=== PATIENT | male | born 1945 | race Caucasian/White ===

== ENCOUNTER 2019-09-27 13:21 | Inpatient (IN) | payer MEDICARE, OTHER ==
[~2019-09-27] VITALS: Ht 175.3 cm; Wt 78.9 kg
[2019-09-27] MEDS ORDERED: CEFTRIAXONE SODIUM 2 GM VIAL ONE (14:22)
[2019-09-27] MEDS ORDERED: SODIUM CHLORIDE 0.9% 100 ML IV ONE (14:22)
[2019-09-27 14:51] LABS: APPEARANCE,URINE CLOUDY (CLEAR); BILIRUBIN,URINE SMALL (NEGATIVE); GLUCOSE, URINE (UA) 250 mg/dL (NEGATIVE); KETONES,URINE NEGATIVE (NEGATIVE); LEUKOCYTE ESTERASE ,URINE NEGATIVE (NEGATIVE); NITRATE,URINE NEGATIVE (NEGATIVE); OCCULT BLOOD,URINE LARGE (NEGATIVE); PH,URINE 5.5 (5.0-8.0); PROTEIN,URINE 30 mg/dL (NEGATIVE)
[2019-09-27 14:56] LABS: COLOR,URINE BROWN (YELLOW)
[2019-09-27 14:56] LABS: BASOPHILS % (AUTO) 0.5 % (0.0-5.0); HEMATOCRIT 41.3 % (42-54); LYMPHOCYTES % (AUTO) 23.4 % (21.0-51.0); MEAN CORPUSCULAR HEMOGLOBIN 33.5 pg (27.0-33.0); MEAN CORPUSCULAR HGB CONC 34.8 g/dL (32.0-36.0); MEAN CORPUSCULAR VOLUME 96.3 fL (79-99); MONOCYTES % (AUTO) 6.2 % (3.0-13.0); NEUTROPHILS % (AUTO) 68.9 % (40.0-77.0); PLATELET COUNT (AUTO) 215 K/uL (130-400); RED BLOOD CELL COUNT(AUTO) 4.29 MIL/uL (4.50-6.20)
[2019-09-27 14:58] LABS: RBC,URINE Full Field /HPF (0-1)
[2019-09-27 14:59] LABS: BACTERIA,URINE Few /HPF (None Seen); SQUAMOUS EPITHELIAL CELL,UR None Seen /HPF (0-2); WBC,URINE 0-1 /HPF (0-1)
[2019-09-27 15:07] LABS: INR 1.19 (0.85-1.15); PARTIAL THROMBOPLASTIN TIME 30.9 SEC (26.3-35.5); PROTHROMBIN TIME 12.4 SEC (9.6-11.6)
[2019-09-27 15:09] LABS: CARBON DIOXIDE 27 mmol/L (21-32); CHLORIDE 107 mmol/L (101-111); CREATININE 0.9 mg/dL (0.5-1.5); GLOMERULAR FILTR. RATE CALC 87 mL/min (>60); GLUCOSE,RANDOM 205 mg/dL (70-105); POTASSIUM 3.9 mmol/L (3.5-5.1); SODIUM SERUM 143 mmol/L (136-145); UREA NITROGEN, BLOOD 16 mg/dL (7-18)
[2019-09-27 15:20] LABS: ALANINE AMINOTRANSFERASE 30 U/L (12-78); ALBUMIN 3.2 g/dL (3.5-5.0); ASPARTATE AMINOTRANSFERASE 21 U/L (10-37); BILIRUBIN,TOTAL 0.5 mg/dL (0.2-1.0); CREATINE KINASE, TOTAL 45 U/L (21-232); MYOGLOBIN 47 ng/mL (10-92); TOTAL PROTEIN, SERUM 6.5 g/dL (6.0-8.3); TROPONIN I < 0.04 ng/mL (0.00-0.06)
[2019-09-27] MEDS: SODIUM CHLORIDE 0.9% 1000ML 1,000 ML IV SCH (16:10)
[2019-09-27] MEDS ORDERED: MORPHINE SULFATE 2 MG/ML 1ML SYG IV PRN (16:15)
[2019-09-27] MEDS: TAMSULOSIN HCL 0.4 MG CAP.ER.24H PO SCH (16:15)
[2019-09-27] MEDS ORDERED: HYDRALAZINE HCL 20 MG/ML VIAL IV PRN (16:15)
[2019-09-27] MEDS ORDERED: MORPHINE SULFATE 4 MG/1ML SYG IV PRN (16:15)
[2019-09-27] MEDS ORDERED: TAMSULOSIN HCL 0.4 MG CAP.ER.24H ONE ×2 (16:58→16:59)
[2019-09-27] MEDS ORDERED: SODIUM CHLORIDE 0.9% 1000ML 1,000 ML IV ONE (16:58)
[2019-09-27] MEDS ORDERED: ZOSYN 3.375GM+NS 50ML 50 ML IV ONE (16:58)
[2019-09-27] MEDS ORDERED: MORPHINE SULFATE 4 MG/1ML SYG ONE (17:49)
[2019-09-27 18:15] VITALS: BP 144/99
[2019-09-27 20:39] VITALS: BP 134/80
[2019-09-27] MEDS: METOPROLOL TARTRATE 25 MG TAB PO SCH (21:30)
[2019-09-27] MEDS: FAMOTIDINE/PF 20 MG/2 ML VIAL IV SCH (21:30)
[2019-09-27] MEDS: ZOSYN 3.375GM+NS 50ML 50 ML IV SCH (21:31)
[2019-09-27] MEDS ORDERED: LORA10TA7 PO (22:30)
[2019-09-27] MEDS ORDERED: NITR0.4T50 SL (22:30)
[2019-09-27] MEDS ORDERED: ATEN50TA PO (22:30)
[2019-09-27] MEDS ORDERED: PANT40TA25 PO (22:30)
[2019-09-27] MEDS ORDERED: ATOR10TA69 PO (22:30)
[2019-09-27] MEDS ORDERED: RIVA20TA PO (22:30)
[2019-09-27 23:56] VITALS: BP 118/79
[2019-09-28] MEDS: SODIUM CHLORIDE 0.9% 1000ML 1,000 ML IV SCH ×4 (00:10→22:21)
[2019-09-28 04:04] VITALS: BP 105/60
[2019-09-28 05:02] LABS: BASOPHILS % (AUTO) 0.5 % (0.0-5.0); EOSINOPHILS % (AUTO) 0.5 % (0.0-8.0); HEMATOCRIT 38.3 % (42-54); MEAN CORPUSCULAR HEMOGLOBIN 33.8 pg (27.0-33.0); MEAN CORPUSCULAR HGB CONC 35.2 g/dL (32.0-36.0); MEAN CORPUSCULAR VOLUME 96.1 fL (79-99); MONOCYTES % (AUTO) 7.4 % (3.0-13.0); NEUTROPHILS % (AUTO) 77.6 % (40.0-77.0); PLATELET COUNT (AUTO) 196 K/uL (130-400); RED BLOOD CELL COUNT(AUTO) 3.99 MIL/uL (4.50-6.20); RED CELL DISTRIBUTION WIDTH 12.8 % (11.0-15.5); WHITE BLOOD COUNT (AUTO) 10.5 K/uL (4.8-10.8)
[2019-09-28 05:06] LABS: CREATININE 1.1 mg/dL (0.5-1.5); POTASSIUM 4.1 mmol/L (3.5-5.1)
[2019-09-28] MEDS: ZOSYN 3.375GM+NS 50ML 50 ML IV SCH ×3 (05:07→21:23)
[2019-09-28 08:00] VITALS: BP 128/76
--- NOTE | 2019-09-28 08:10 | NUR ---
PATIENT UPDATE Pt admitted with afib with rvr episode from the ER as per report. Ms. Enrique INFORMATION RESOURCES DIRECTOR called and asked about the possible need for telemetry monitoring and ordered it. Patient running afib bet 94- low 100's, no chest pain, no shortness of breath. No complaints of any abdominal nor bladder discomfort, tatum catheter inserted from ER and the urine blood tinged. Patient was on xarelto but it was put on hold with this admission. Pt with gaurav scd's on both lower extremities for vte protocol.Mod amt of bruised areas mostly on the gaurav upper extremities bec of the anticoagulation. Observed closely for any signs of bleeding other than the hematuria, none noted. Vital signs stable,adequate urine output , urine strained, no stones noted. Pt kept npo as per order, pending to be seen by urologist this am. Blood sugars checked q 6hrs, within normal limits. CHG bath given by ASPHALT RAKER, pt slept well overnight.
[2019-09-28] MEDS: TAMSULOSIN HCL 0.4 MG CAP.ER.24H PO SCH (08:50)
[2019-09-28] MEDS: FAMOTIDINE/PF 20 MG/2 ML VIAL IV SCH ×2 (08:50→21:23)
[2019-09-28] MEDS: METOPROLOL TARTRATE 25 MG TAB PO SCH ×2 (08:50→21:23)
[2019-09-28 11:00] VITALS: BP 120/83
--- NOTE | 2019-09-28 15:06 | NUR ---
DR RUIZ IN TO SEE PATIENT.
[2019-09-28 16:00] VITALS: BP 137/77
--- NOTE | 2019-09-28 16:12 | NUR ---
FRIED CATHETER REMOVED ORDERS WITH 700 CC URINARY RETURNED , PATIENT TOLERATED PROCEDURES WELL , DUE TO VOID BY 12 PM
--- NOTE | 2019-09-28 18:04 | NUR ---
INITIAL: Met with pt this afternoon to discuss dcp. Pt mentions that he lives w his girlfriend. Prior to admission was independent w ambulation and ADLs. He has a cane, wc and walker that belonged to his . Pt mentions that he drives where needed. He states that he feels safe and comfortable to return home at [place]. CM to continue to follow and wait for Md recommendations. Addendum: 09/28/19 at 1805 by KARI TAPIA Amended: Links added.
[2019-09-28 20:14] VITALS: BP 120/75
[2019-09-28 23:15] VITALS: BP 116/65
[2019-09-29 03:22] VITALS: BP 127/73
[2019-09-29] MEDS: SODIUM CHLORIDE 0.9% 1000ML 1,000 ML IV SCH (04:43)
[2019-09-29] MEDS: ZOSYN 3.375GM+NS 50ML 50 ML IV SCH ×2 (04:43→12:58)
[2019-09-29 05:31] LABS: BASOPHILS % (AUTO) 0.7 % (0.0-5.0); EOSINOPHILS % (AUTO) 1.9 % (0.0-8.0); HEMATOCRIT 36.9 % (42-54); LYMPHOCYTES % (AUTO) 27.8 % (21.0-51.0); MEAN CORPUSCULAR HEMOGLOBIN 34.1 pg (27.0-33.0); MEAN CORPUSCULAR HGB CONC 35.2 g/dL (32.0-36.0); MEAN CORPUSCULAR VOLUME 96.9 fL (79-99); MONOCYTES % (AUTO) 9.7 % (3.0-13.0); NEUTROPHILS % (AUTO) 59.9 % (40.0-77.0); PLATELET COUNT (AUTO) 165 K/uL (130-400); RED BLOOD CELL COUNT(AUTO) 3.81 MIL/uL (4.50-6.20); RED CELL DISTRIBUTION WIDTH 12.9 % (11.0-15.5); WHITE BLOOD COUNT (AUTO) 6.1 K/uL (4.8-10.8)
[2019-09-29 06:06] LABS: POTASSIUM 3.9 mmol/L (3.5-5.1)
[2019-09-29 07:30] VITALS: BP 140/82
[2019-09-29] MEDS: TAMSULOSIN HCL 0.4 MG CAP.ER.24H PO SCH (09:26)
[2019-09-29] MEDS: FAMOTIDINE/PF 20 MG/2 ML VIAL IV SCH (09:26)
[2019-09-29] MEDS: METOPROLOL TARTRATE 25 MG TAB PO SCH (09:26)
[2019-09-29 11:00] VITALS: BP 149/87
[2019-09-29] MEDS ORDERED: TAMS-1 PO (11:21)
[2019-09-29] MEDS ORDERED: FINA5TAB2 PO (11:24)
[2019-09-29] MEDS ORDERED: FINASTERIDE 5 MG TABLET PO SCH (11:30)
[2019-09-29] MEDS ORDERED: AMIO200T5 PO (13:42)
[2019-09-29] MEDS ORDERED: AMIODARONE HCL 200 MG TABLET PO SCH (13:45)
[2019-09-29 16:00] VITALS: BP 148/85
--- NOTE | 2019-09-29 17:49 | NUR ---
PATIENT DISCHARGE PATIENT DISCHARGED, IV DISCONTINUED, CATHLON INTACT, BLEEDING CONTROLLED, PATIENT TOLERATED WITHOUT INCIDENT.
== END 2019-09-29 18:00 | disposition home or self-care (01) | DRG 696 ==
LOC: EDH 13:21 → EDHIP 16:10 → 3AH 18:06
PROVIDERS: ADMIT Internal Medicine; ATTEND Internal Medicine
DX: R31.0 Gross hematuria (principal); I48.0 Paroxysmal atrial fibrillation; N40.0 Benign prostatic hyperplasia without lower urinary tract symptoms; I10 Essential (primary) hypertension; E11.9 Type 2 diabetes mellitus without complications; I25.10 Atherosclerotic heart disease of native coronary artery without angina pectoris; I44.4 Left anterior fascicular block; E78.5 Hyperlipidemia, unspecified; K57.90 Diverticulosis of intestine, part unspecified, without perforation or abscess without bleeding; Z96.652 Presence of left artificial knee joint; Z95.5 Presence of coronary angioplasty implant and graft; Z87.891 Personal history of nicotine dependence; Z90.49 Acquired absence of other specified parts of digestive tract; Z87.442 Personal history of urinary calculi; N20.1 Calculus of ureter
CPT/HCPCS: 36415; 76770; 80048; 80053; 81001; 82550; 82948; 83605; 83874; 84145; 84484; 85025; 85610; 85730; 87040; 87088; 93005; G0378; J0696; J2270; J2543; J3490; J7030

== ENCOUNTER → 2019-10-21 | Outpatient (CLI) | payer MEDICARE ==
[~2019-10-21] MED LIST: AMIO200T5 PO; ATEN50TA PO; ATOR10TA69 PO; FINA5TAB2 PO; LORA10TA7 PO; NITR0.4T50 SL; PANT40TA25 PO; TAMS-1 PO
== END | disposition home or self-care (01) ==
LOC: RAH 14:31
PROVIDERS: ATTEND Urology
DX: R10.9 Unspecified abdominal pain (principal); I87.8 Other specified disorders of veins
CPT/HCPCS: 74018

== ENCOUNTER → 2020-07-01 | Outpatient (CLI) | payer MEDICARE ==
[~2020-07-01] MED LIST changes: +IOHEXOL 350 MG/ML 100ML INFUS..BTL IV ONE
== END | disposition home or self-care (01) ==
LOC: OIH 07:31
PROVIDERS: ATTEND Urology
DX: N40.0 Benign prostatic hyperplasia without lower urinary tract symptoms (principal); R31.0 Gross hematuria; N13.2 Hydronephrosis with renal and ureteral calculous obstruction
CPT/HCPCS: 74178; Q9967